=== PATIENT | male | born 1975 | race Caucasian/White ===

== ENCOUNTER 2020-11-16 13:23 | Outpatient (CLI) | payer OTHER, SELFPAY ==
--- NOTE | 2020-11-16 13:25 | MR_ITS ---
WS: [id number] MRI HEAD WITH CONTRAST WITH ATTENTION TO THE INTERNAL AUDITORY CANALS TECHNIQUE: Sagittal T1, T2 axial, T2 axial flair, axial susceptibility weighted imaging, axial diffus ion weighted images, and coronal T2 images were obtained. Pre and post T1 axial and post T1 coronal i mages. ADC and FSPGR images. Post gadolinium images with attention to the internal auditory canals. A xial fiesta imaging. CLINICAL INFORMATION: SENSORINEURAL HEARING LOSS BILATERAL;TINNITUS BILATERAL COMPARISON: None. FINDINGS: No evidence of restricted diffusion to suggest acute ischemia. Ventricular system and basal cisterns are patent. No suspicious intracranial signal abnormalities. Normal greer-white differentiation. No he mosiderin on the susceptibly weighted images. Normal vascular flow voids at the skull base. No extra- axial fluid collections. No evidence of mass or mass effect. Mild polypoid mucosal thickening in the paranasal sinuses. Mastoid air cells are well aerated. Incidental arachnoid cyst in the posterior fos sa. Temporal lobes and hippocampal formations are normal in appearance. Proximal 7th and 8th cranial nerv es are normal. Normal trigeminal nerve root entry zones. No evidence of enhancing IAC or CP angle ma ss. No abnormal intracranial enhancement. Normal dural venous sinuses. MR/MR iac's wo/w con* [id number] IMPRESSION: 1. No evidence of restricted diffusion to suggest acute ischemia. 2. No suspicious intracranial signal abnormalities. 3. Proximal 7th and 8th cranial nerves are normal in appearance. No evidence o f enhancing IAC or CP angle mass. Normal trigeminal nerve root entry zones. 4. Mild polypoid mucosal thickening in the paranasal sinuses. Mastoid air cell s are well aerated.
== END 2020-11-16 13:24 | disposition home or self-care (01) ==
LOC: RADSHAW 13:25
PROVIDERS: PCP Family Medicine; Visit Provider Specialist
DX: H90.3 Sensorineural hearing loss, bilateral (principal); H93.13 Tinnitus, bilateral
CPT/HCPCS: 70553; A9579

== ENCOUNTER 2021-12-11 06:00 | Outpatient (RCR) | payer OTHER, SELFPAY | END 2021-12-18 23:59 | disposition home or self-care (01) | LOC: SPT 06:00 | PROVIDERS: PCP Family Medicine; Referring Provider Family Medicine; Visit Provider Family Medicine | DX: M54.50 Low back pain, unspecified (principal) | CPT/HCPCS: 97110; 97161; G0283 ==

== ENCOUNTER → 2021-12-12 13:36 | Outpatient (BNVA) | payer OTHER, SELFPAY | PROVIDERS: PCP Family Medicine; Visit Provider Urology | DX: N50.811 Right testicular pain (principal); N43.40 Spermatocele of epididymis, unspecified | CPT/HCPCS: 81003 ==

== ENCOUNTER 2021-12-19 06:00 | Outpatient (RCR) | payer OTHER, SELFPAY | END 2022-01-15 23:59 | disposition home or self-care (01) | LOC: SPT 06:00 | PROVIDERS: PCP Family Medicine; Referring Provider Family Medicine; Visit Provider Family Medicine | DX: J32.0 Chronic maxillary sinusitis (principal) | CPT/HCPCS: 97110; G0283 ==

== ENCOUNTER 2022-01-16 06:00 | Outpatient (RCR) | payer OTHER, SELFPAY | END 2022-02-15 23:59 | disposition home or self-care (01) | LOC: SPT 06:00 | PROVIDERS: PCP Family Medicine; Referring Provider Family Medicine; Visit Provider Family Medicine | DX: M54.59 Other low back pain (principal) | CPT/HCPCS: 97110; G0283 ==

== ENCOUNTER 2022-02-16 06:00 | Outpatient (RCR) | payer OTHER, SELFPAY | END 2022-02-27 23:59 | disposition home or self-care (01) | LOC: SPT 06:00 | PROVIDERS: PCP Family Medicine; Referring Provider Family Medicine; Visit Provider Family Medicine | DX: M54.59 Other low back pain (principal) | CPT/HCPCS: 97110; G0283 ==

== ENCOUNTER → 2022-02-20 09:39 | Outpatient (BNVA) | payer OTHER, SELFPAY | PROVIDERS: PCP Family Medicine; Visit Provider Urology | DX: N50.811 Right testicular pain (principal); N43.40 Spermatocele of epididymis, unspecified | CPT/HCPCS: 81003 ==

== ENCOUNTER → 2022-07-03 13:00 | Outpatient (BNVA) | payer OTHER, SELFPAY | PROVIDERS: PCP Family Medicine; Visit Provider Urology | DX: N50.811 Right testicular pain (principal); N43.40 Spermatocele of epididymis, unspecified | CPT/HCPCS: 81003; 99214 ==

== ENCOUNTER → 2022-09-24 14:51 | Outpatient (BNVA) | payer OTHER, SELFPAY | PROVIDERS: PCP Family Medicine; Visit Provider Urology | DX: N50.811 Right testicular pain (principal); N43.40 Spermatocele of epididymis, unspecified; N50.82 Scrotal pain | CPT/HCPCS: 81003; 99214 ==

== ENCOUNTER 2022-09-26 05:22 | Day surgery (SDC) | payer OTHER, SELFPAY ==
[2022-09-25 14:01] VITALS: BMI 43.0
[2022-09-26] VITALS (11 sets, daily range): BP systolic 121–144; BP diastolic 70–92; PULSE 62–78; RESP 12–21; TEMP 36.2–37.1; O2SAT 94–97
--- NOTE | 2022-09-26 06:02 | P.HPUD_ITS ---
Surgery/Procedure H&P Update DATE OF PROCEDURE: September 26, 2022 DATE H&P PERFORMED: 09/24/22 H&P UPDATE INFORMATION: I have reviewed H&P completed within last 30 days, I have examined patient prior to procedure, No changes to prior documentation and H&P is in [facility] EMR on date indicated CHANGES TO PREVIOUS DOCUMENTATION: Operative site confirmed again. Marked accordingly all questions answered. PREOP DIAGNOSIS: Symptomatic left spermatocele PLANNED PROCEDURE: Operation Date: 09/26/22 07:00 Proposed Procedures p Left spermatocelectomy 21950 N43.40(Left) - Graham Joel MD
[2022-09-26] MEDS: sodium chloride 0.9% 1,000 ML 30 ML IV (06:23)
--- NOTE | 2022-09-26 06:24 | P.ANESASSM_ITS ---
Pre-Anesthetic Assessment Height/Weight: Height 1.57 m Weight 106.594 kg Temp Pulse Resp BP Pulse Ox O2 Del Method 98.8 F 68 18 125/82 97 09/26/22 06:03 09/26/22 06:03 09/26/22 06:03 09/26/22 06:03 09/26/22 06:03 09/26/22 06:07 Preop Diagnosis: Symptomatic left spermatocele Operation Date: 09/26/22 07:00 Proposed Procedures p Left spermatocelectomy 00480 N43.40(Left) - Graham Joel MD Familial anesthetic complications: None Was Beta Ellen taken within 24 hours: N/A Was Clonidine taken within 24 hours: N/A Last intake: Intake Last Liquid Date 09/25/22 Last Liquid Time 23:00 Last Solid Date 09/25/22 Last Solid Time 18:00 Social No alcohol and No tobacco Exam alert, oriented x 3, clear to auscultation bilaterally and regular rate & rhythm Airway Submandibular: within normal limits Cervical ROM: within normal limits Mallampati: Class III (Small mouth opening) Comments: Comments: * Missing front teeth History/ROS No significant history except as noted Pulmonary Sleep Apnea (CPAP wear nightly) CV/HEM Arrythmia None reported Hepatic None reported GI Gastroesophageal Reflux Disease (Controlled with meds, no symptoms this AM) Metabolic Morbid Obesity Musc/skel Lower Back Pain and Scoliosis Neuropsych Anxiety and Depression Anesthetic Plan ASA status: 2 Anesthesia: Anesthesia Evaluation and General Risk of > 500 ml blood loss (7ml/kg in children): No Medications/Allergies Home Medications Medication Instructions Recorded Confirmed Last Taken Type carboxymethylcellulose sodium 0.5 1 drp ophthalmic (eye) QID 11/14/21 09/26/22 09/25/22 History % eye drops cetirizine 10 mg tablet 10 mg PO DAILY PRN Allergy Symptoms 11/14/21 09/26/22 09/25/22 History cholecalciferol (vitamin D3) 25 25 mcg PO DAILY 11/14/21 09/26/22 09/25/22 History mcg (1,000 unit) capsule cyclobenzaprine 10 mg tablet 10 mg PO TID 11/14/21 09/26/22 09/25/22 History fluticasone propionate 50 1 spray intranasal DAILY 11/14/21 09/26/22 09/25/22 History mcg/actuation nasal spray,suspension hydroxyzine HCl 10 mg tablet 10 mg PO TID PRN Anxiety 11/14/21 09/26/22 09/25/22 History omeprazole 20 mg capsule,delayed 20 mg PO DAILY 11/14/21 09/26/22 09/25/22 History release pravastatin 40 mg tablet 40 mg PO DAILY 11/14/21 09/26/22 09/25/22 History risperidone 0.25 mg tablet 0.25 mg PO BID 11/14/21 09/26/22 09/25/22 History sertraline 100 mg tablet 100 mg PO DAILY 11/14/21 09/26/22 09/25/22 History trazodone 100 mg tablet 100 mg PO DAILY 11/14/21 09/26/22 09/25/22 History allopurinol 100 mg tablet 200 mg PO DAILY 12/12/21 09/26/22 09/25/22 History Allergies Allergy/AdvReac Type Severity Reaction Status Date / Time oxycodone Allergy Unknown Verified 09/25/22 13:56 peas Allergy Unknown Verified 09/25/22 13:56 Current Medications Generic Name Dose Route Start Last Admin Trade Name Freq PRN Reason Stop Dose Admin Sodium Chloride 1,000 mls @ 30 mls/hr 09/26/22 06:00 09/26/22 06:23 Sodium Chloride 0.9% IV 09/27/22 05:59 30 mls/hr .Q24H SPARKLE Administration PFSH Anesthesia Medical History (Updated 09/24/22 @ 15:42 by Graham Joel MD) Chronic GERD Chronic maxillary sinusitis Hiatal hernia Hyperlipidemia Major depressive disorder Myalgia Obsessive compulsive disorder Right testicular pain Surgical History (Updated 09/24/22 @ 15:42 by Graham Joel MD) H/O vasectomy H/O wrist surgery cyst bialterally Family History Father Hypertension Diabetes Mother Diabetes Social History (Updated 09/24/22 @ 15:07 by Genevieve Huizar LPN) Smoking and tobacco status: current some day smoker Alcohol intake: current Alcohol intake frequency: holidays/special occasions only Marital status: service: Yes Current occupational status: disabled History of recent travel: Yes ([place]) Data Anesthesia Cardiac Studies: No Data to Display
[2022-09-26] MEDS: ceFAZolin 2,000 MG in sodium chloride 0.9% (plus) 50 ML 100 MG IV (06:58)
--- NOTE | 2022-09-26 07:04 | P.OP_ITS ---
Operative Report Date of procedure: 09/26/2022 Pre-op diagnosis: Symptomatic left spermatocele Post-op diagnosis: Symptomatic left spermatocele Procedure done: Left spermatocelectomy Implants: None Specimens removed/disposition: Left spermatocele Pathology: Left spermatocele Surgeon: Marycruz Estimated blood loss: Minimal Urine output: Not measured Complications: None Findings: Anesthesia: General Condition: Stable Disposition: PACU Intraoperative findings: * Simple appearing spermatocele measuring approximately 3 cm. * Grossly normal left testicle Brief History: Donaldo is a very pleasant 47-year-old white male with increasing symptoms related to left spermatocele. Please see HPI He has elected left spermatocelectomy in hopes of improving his pain. We have had multiple conversations about the procedure including that it may make a huge difference in his symptoms but in certain circumstances it may not. He expresses good understanding regarding this dilemma. Procedure: After routine preoperative evaluation examination and obtaining of informed consent he was taken to the operating suite on 09/26/2022 where general anesthesia was administered without difficulty. Appropriate timeout was performed, SCDs confirmed to be functioning, preoperative antibiotics administered, beta-krystin protocol confirmed. Prepped and draped in the usual sterile fashion in supine position. A midline median raphae incision was made after confirmation of appropriate laterality. This spermatocele was easily palpable. This incision was taken down through the skin and subcutaneous tissue and through the tunica vaginalis on the left side. Testicle was exposed and the spermatocele identified. The investing tissues around the spermatocele were dissected down to the thin sac and then the spermatocele was dissected down to its connection. Connection was divided with electrocautery and the specimen delivered. No other spermatoceles were identified on examination. Meticulous hemostasis was obtained and the woun d was irrigated testicle returned to its anatomic position in the scrotum and the wound was closed with 3-0 Vicryl for dartos closure. Local wound infiltration was conducted with 0.25% Marcaine without epi. Skin edges approximated with 4-0 Vicryl and then skin edges sealed with Dermabond. He tolerated procedure well without complications and was awakened in the operating room and returned to PACU in stable condition. PLANS: 1. Anticipate discharge from outpatient surgery 2. Follow-up in about 6 weeks for postop check 3. Postop instructions provided in discharge records to be provided to the patient
--- NOTE | 2022-09-26 08:19 | PC.NURSE ---
No bleeding noted from incision site. Ice applied
--- NOTE | 2022-09-26 08:44 | PC.NURSE ---
spoke with marcelino in Dr Dixon's office @ [phone]. She said that they will contact patient for 6 week follow up appointment
[2022-09-26] MEDS: HYDROcodone-acetaminophen 5-325 mg Tablet 1 TAB PO (08:55)
== END 2022-09-26 09:12 | disposition home or self-care (01) ==
PROVIDERS: PCP Family Medicine; Visit Provider Urology
PROC: (CPT 54840; principal; 2022-09-26 07:00)
DX: N43.41 Spermatocele of epididymis, single (principal); G47.33 Obstructive sleep apnea (adult) (pediatric); K21.9 Gastro-esophageal reflux disease without esophagitis; E66.01 Morbid (severe) obesity due to excess calories; Z68.41 Body mass index [BMI] 40.0-44.9, adult; E78.5 Hyperlipidemia, unspecified; F17.210 Nicotine dependence, cigarettes, uncomplicated
CPT/HCPCS: 54840; 88304; J0131; J0690; J1100; J1885; J2250; J2405; J2704; J3010; J3490; J7030

== ENCOUNTER → 2022-11-02 11:09 | Outpatient (BNVA) | payer OTHER, SELFPAY | PROVIDERS: PCP Family Medicine; Visit Provider Urology | DX: N43.40 Spermatocele of epididymis, unspecified (principal); N50.82 Scrotal pain | CPT/HCPCS: 81003; 99212 ==

== ENCOUNTER 2024-12-23 11:39 | Outpatient (CLI) | payer OTHER, SELFPAY ==
--- NOTE | 2024-12-23 | ECG_ITS ---
[facility] Pat Name: Jacoby Becker Department: Room: Gender: Male Rental Clerk: : 1975 Requested By: Eli Wong Order Number: [id number] Turcios MD: Luis Armando Parks M.D. Interpretive Statements TREADMILL STRESS TEST EXERCISE DATA: The patient was exercised by Matt protocol. Baseline heart rate was 80 beats per minute. Baseline blood pressure was 146/89 millimeters of mercury. Maximal predicted heart rate was 171 beats per minute. Maximum heart rate achieved was 154 which was 90% of the maximum predicted heart rate. Maximum blood pressure was 208/79 millimeters of mercury. Total exercise time was 7 minutes and 49 seconds. Maximum METs achieved was 10.2. The reason for ending the test was maximal effort was achieved. The patient complained of shortness of breath during the stress test, which then resolved at the end of the test. ELECTROCARDIOGRAM: BASELINE: Showed sinus rhythm, normal axis, no significant ST-T changes at the baseline noted. [] EXERCISE: At the peak exercise level, [] No significant ST-T changes suggestive of ischemia noted. [] RECOVERY: During the recovery period, heart rate dropped appropriately. No significant ST-T changes in the recovery suggestive of ischemia noted. [] CONCLUSION: 1. Exercise capacity is good 2. Heart rate response was appropriate 3. Blood pressure response was appropriate 4. Symptoms not suggestive of ischemia. 5. Stress test is negative for ischemia Electronically Signed On 01-10-2025 13:11:49 [employer] by Luis Armando Parks M.D. [email or web address]
[2024-12-23 12:19] VITALS: BMI 42.0
[2024-12-23 12:28] VITALS: BP 135/82; PULSE 99
== END 2024-12-23 11:40 | disposition home or self-care (01) ==
LOC: CDL 11:40
PROVIDERS: PCP Family Medicine; Visit Provider Family Medicine
DX: R94.31 Abnormal electrocardiogram [ECG] [EKG] (principal)
CPT/HCPCS: 93017

== ENCOUNTER → 2025-02-17 12:36 | Outpatient (BNVA) | payer OTHER, SELFPAY | PROVIDERS: PCP Family Medicine; Visit Provider Podiatrist Foot & Ankle Surgery | DX: S92.502A Displaced unspecified fracture of left lesser toe(s), initial encounter for closed fracture (principal); S90.32XA Contusion of left foot, initial encounter; W19.XXXA Unspecified fall, initial encounter | CPT/HCPCS: 73630; 99204 ==

== ENCOUNTER → 2025-03-09 12:52 | Outpatient (BNVA) | payer OTHER, SELFPAY | PROVIDERS: PCP Family Medicine; Visit Provider Podiatrist Foot & Ankle Surgery | DX: S92.502A Displaced unspecified fracture of left lesser toe(s), initial encounter for closed fracture (principal); S90.32XA Contusion of left foot, initial encounter; M25.572 Pain in left ankle and joints of left foot; M21.41 Flat foot [pes planus] (acquired), right foot; M21.42 Flat foot [pes planus] (acquired), left foot; W10.9XXA Fall (on) (from) unspecified stairs and steps, initial encounter | CPT/HCPCS: 73630; 99213 ==

== ENCOUNTER → 2025-04-20 14:20 | Outpatient (BNVA) | payer OTHER, SELFPAY | PROVIDERS: PCP Family Medicine; Visit Provider Podiatrist Foot & Ankle Surgery | DX: S92.502A Displaced unspecified fracture of left lesser toe(s), initial encounter for closed fracture (principal); X58.XXXA Exposure to other specified factors, initial encounter | CPT/HCPCS: 73630 ==